=== PATIENT | female | born 1940 | race African-American/Black ===

== ENCOUNTER 2017-12-06 11:38 | Inpatient (IN) | payer MEDICARE, OTHER ==
[~2017-12-06] VITALS: Ht 162.6 cm; Wt 118.1 kg
[2017-12-06 12:39] LABS: Basophils # (auto) 0 uL; Eosinophils # (auto) 0.1 uL
[2017-12-06 12:41] LABS: Basophils % (auto) 0.6 % (0.0-2.0); Eosinophils % (auto) 1.2 % (0.0-7.0); Hematocrit 33.2 % (36.0-46.0); Hemoglobin 10.9 g/dL (12.2-16.2); Lymphocytes % (auto) 13.7 % (10.0-50.0); Mean Corpuscular Hemoglobin 36.9 pg (28.0-32.0); Mean Corpuscular Volume 111.9 fL (80.0-100.0); Monocytes # (auto) 0.6 uL; Monocytes % (auto) 8.9 % (0.0-12.0); Neutrophils # (auto) 5.3 uL; Neutrophils % (auto) 75.6 % (37.0-80.0); Nucleated Red Blood Cells % 0.1 %; Platelet Count (auto) 238 10^3/uL (140-450); Red Blood Cells 2.97 10^6/uL (4.0-5.20); Red Cell Distribution Width 14.5 % (11.8-14.3)
[2017-12-06 13:25] LABS: Alanine Aminotransferase 14 U/L (13-56); Albumin 3.1 g/dL (3.4-5.0); Alkaline Phosphatase 124 U/L (45-117); Anion Gap 10 (5-15); Aspartate Aminotransferase 12 U/L (15-37); BUN/Creatinine Ratio 5.5; Bilirubin, Total 0.4 mg/dL (0.2-1.0); Blood Urea Nitrogen 38 mg/dL (7-18); Calcium 8.3 mg/dL (8.5-10.1); Carbon Dioxide 28 mmol/L (21-32); Chloride 97 mmol/L (98-107); GFR African American 7 mL/min; GFR Non-African American 6 mL/min; Glucose 111 mg/dL (74-106); Potassium 4.7 mmol/L (3.5-5.1); Sodium 135 mmol/L (136-145); Total Protein 8.2 g/dL (6.4-8.2)
[2017-12-06] MEDS ORDERED: MORPHINE SULFATE 4 MG/ML SYR/VIAL IV PRN (15:30)
[2017-12-06] MEDS ORDERED: ASPirin 81 mg TAB PO ONE (15:30)
[2017-12-06] MEDS ORDERED: NITROGLYCERIN 0.4 MG SL TAB SL PRN (15:30)
[2017-12-06] MEDS ORDERED: PANTOPRAZOLE 40 MG TAB PO ONE (15:30)
[2017-12-06] MEDS ORDERED: ESOM40CA39 PO (16:39)
[2017-12-06] MEDS ORDERED: EST0625T PO (16:39)
[2017-12-06] MEDS ORDERED: FURO40TA PO (16:39)
[2017-12-06] MEDS ORDERED: HYDR-531 PO (16:39)
[2017-12-06] MEDS ORDERED: CLON0.1T PO (16:39)
[2017-12-06] MEDS ORDERED: VITA400T4 PO (16:39)
[2017-12-06] MEDS ORDERED: CHOL20007 PO (16:39)
[2017-12-06] MEDS ORDERED: TIOTCAP IN (16:39)
[2017-12-06] MEDS ORDERED: LEV50T PO (16:39)
[2017-12-06] MEDS ORDERED: LOSA100T25 PO (16:39)
[2017-12-06] MEDS ORDERED: [UNRECOGNIZED DRUG - CODE] PO (16:39)
[2017-12-06] MEDS ORDERED: DIAZ10TA PO (16:39)
[2017-12-06] MEDS ORDERED: IPRIH INH (16:39)
[2017-12-06] MEDS ORDERED: ASCO500C49 PO (16:39)
[2017-12-06] MEDS ORDERED: TRAM50TA2 PO (16:47)
[2017-12-06] MEDS ORDERED: LEVO1CAP3 PO (16:47)
[2017-12-06] MEDS ORDERED: SEVE800T8 PO (16:47)
[2017-12-06] MEDS ORDERED: MULT-228 PO (16:48)
[2017-12-06] MEDS ORDERED: ACETTAB85 PO (16:48)
[2017-12-06] MEDS: CALCIUM ACETATE 667 MG CAP PO SCH (18:12)
[2017-12-06] MEDS: ATORVASTATIN 20 MG TAB PO SCH (21:58)
[2017-12-06 22:00] VITALS: BP 113/73
[2017-12-06] MEDS ORDERED: NIF10C PO (23:47)
[2017-12-06] MEDS: ACETAMINOPHEN 325 MG TAB PO PRN (23:54)
[2017-12-07 05:00] VITALS: BP 132/62
[2017-12-07 09:18] VITALS: BP 107/48
[2017-12-07] MEDS ORDERED: EPOETIN ALFA 2,000 UNIT/1 ML VIAL IV ONE ×3 (10:00→16:00)
[2017-12-07] MEDS ORDERED: SODIUM CHL 0.9% 1000 ML BAG XX ONE (10:00)
[2017-12-07] MEDS ORDERED: MIDODRINE HCL 10 MG TAB PO PRN (10:00)
[2017-12-07] MEDS: ACETAMINOPHEN 325 MG TAB PO PRN ×2 (10:06→22:04)
[2017-12-07] MEDS: CALCIUM ACETATE 667 MG CAP PO SCH ×3 (10:06→18:49)
[2017-12-07] MEDS: ASPirin 81 mg TAB PO SCH (10:07)
[2017-12-07] MEDS: PANTOPRAZOLE 40 MG TAB PO SCH (10:07)
[2017-12-07 12:55] VITALS: BP 113/52
[2017-12-07] MEDS ORDERED: EPOETIN ALFA 3,000 UNIT/1 ML VIAL IV ONE (16:00)
[2017-12-07 17:24] VITALS: BP 101/56
[2017-12-07] MEDS: ATORVASTATIN 20 MG TAB PO SCH (21:35)
[2017-12-07 21:52] VITALS: BP 123/58
[2017-12-08 04:32] VITALS: BP 134/53
[2017-12-08] MEDS: CALCIUM ACETATE 667 MG CAP PO SCH ×3 (08:00→18:28)
[2017-12-08 08:36] VITALS: BP 133/64
[2017-12-08] MEDS: PANTOPRAZOLE 40 MG TAB PO SCH (09:41)
[2017-12-08] MEDS: ASPirin 81 mg TAB PO SCH (09:41)
[2017-12-08 12:18] VITALS: BP 103/55
[2017-12-08] MEDS ORDERED: MIDODRINE HCL 10 MG TAB PO PRN ×2 (16:30→17:15)
[2017-12-08 17:25] VITALS: BP 87/54
[2017-12-08] MEDS: ATORVASTATIN 20 MG TAB PO SCH (21:42)
[2017-12-08 21:43] VITALS: BP 95/54
[2017-12-09 05:07] VITALS: BP 99/59
[2017-12-09] MEDS: CALCIUM ACETATE 667 MG CAP PO SCH ×3 (08:13→18:09)
[2017-12-09 09:00] VITALS: BP 120/49
[2017-12-09] MEDS ORDERED: EPOETIN ALFA 2,000 UNIT/1 ML VIAL IV ONE (10:00)
[2017-12-09] MEDS ORDERED: SODIUM CHL 0.9% 1000 ML BAG XX ONE (10:00)
[2017-12-09] MEDS: PANTOPRAZOLE 40 MG TAB PO SCH (10:03)
[2017-12-09] MEDS: ASPirin 81 mg TAB PO SCH (10:03)
[2017-12-09 12:00] VITALS: BP 123/54
[2017-12-09 16:00] VITALS: BP 97/55
== END 2017-12-09 19:00 | disposition home or self-care (01) | DRG 302 ==
LOC: ER 11:38 → TELE 11:39 → TELE-EAST 18:25
PROVIDERS: ADMIT Internal Medicine; ATTEND Internal Medicine Cardiovascular Disease
PROC: 5A1D70Z Performance of Urinary Filtration, Intermittent, Less than 6 Hours Per Day (ICD-10-PCS; principal; 2017-12-07)
PROC: 5A1D70Z Performance of Urinary Filtration, Intermittent, Less than 6 Hours Per Day (ICD-10-PCS; 2017-12-09)
DX: I25.119 Atherosclerotic heart disease of native coronary artery with unspecified angina pectoris (principal); N18.6 End stage renal disease; I12.0 Hypertensive chronic kidney disease with stage 5 chronic kidney disease or end stage renal disease; E66.01 Morbid (severe) obesity due to excess calories; D63.8 Anemia in other chronic diseases classified elsewhere; Z68.41 Body mass index [BMI] 40.0-44.9, adult; I25.2 Old myocardial infarction; Z99.2 Dependence on renal dialysis; M17.0 Bilateral primary osteoarthritis of knee; E03.9 Hypothyroidism, unspecified; E78.5 Hyperlipidemia, unspecified; Z96.653 Presence of artificial knee joint, bilateral; T36.8X5A Adverse effect of other systemic antibiotics, initial encounter; F32.9 Major depressive disorder, single episode, unspecified; F41.9 Anxiety disorder, unspecified; Z82.49 Family history of ischemic heart disease and other diseases of the circulatory system; Z88.5 Allergy status to narcotic agent; Z79.899 Other long term (current) drug therapy; Z98.61 Coronary angioplasty status; Z71.89 Other specified counseling; Y92.89 Other specified places as the place of occurrence of the external cause
CPT/HCPCS: 36415; 71045; 80053; 83540; 83735; 84100; 84443; 84484; 85025; 87081; 90935; 93005; 93306; 97163; J1642; Q4081

== ENCOUNTER → 2018-08-16 | Outpatient (CLI) | payer MEDICARE, BC ==
[~2018-08-16] MED LIST: ACET-1603 PO; ASCO500C49 PO; CHOL20007 PO; CLON0.1T PO; DIAZ10TA PO; ESOM40CA39 PO; EST0625T PO; FURO40TA PO; HYDR-531 PO; IPRIH INH; LEV50T PO; LEVO1CAP3 PO; LOSA100T25 PO; MULT-228 PO; NIF10C PO; SEVE800T8 PO; TIOTCAP IN; TRAM50TA2 PO; VITA400T4 PO; [UNRECOGNIZED DRUG - CODE] PO
== END | disposition home or self-care (01) ==
LOC: Rad HDHVI 10:52
PROVIDERS: ATTEND Internal Medicine Cardiovascular Disease
DX: M48.061 Spinal stenosis, lumbar region without neurogenic claudication (principal); Z79.899 Other long term (current) drug therapy
CPT/HCPCS: 72131

== ENCOUNTER → 2020-04-14 | Outpatient (CLI) | payer MEDICARE, BC ==
[~2020-04-14] MED LIST changes: +FURO1TAB31 PO; -FURO40TA PO
[2020-04-14 16:09] LABS: Albumin 2.9 g/dL (3.4-5.0); Potassium 4.2 mmol/L (3.5-5.1)
[2020-04-14 16:13] LABS: Basophils # (auto) 0 10 ^3/uL (0-0.2); Eosinophils # (auto) 0.2 10 ^3/uL (0-0.8); Hemoglobin 7.3 g/dL (12.2-16.2); Lymphocytes # (auto) 1.2 10 ^3/uL (0.4-5.4); Mean Corpuscular Volume 100.4 fL (80.0-100.0)
[2020-04-14 16:15] LABS: BUN/Creatinine Ratio 3.7; Basophils % (auto) 0.6 % (0.0-2.0); Bilirubin, Total 0.3 mg/dL (0.2-1.0); Eosinophils % (auto) 3.1 % (0.0-7.0); Hematocrit 23.1 % (36.0-46.0); Lymphocytes % (auto) 16.5 % (10.0-50.0); Mean Corpuscular Hemoglobin 31.8 pg (28.0-32.0); Mean Corpuscular Hgb Conc. 31.7 g/dL (32.0-36.0); Monocytes # (auto) 0.6 10 ^3/uL (0-1.3); Monocytes % (auto) 7.7 % (0.0-12.0); Neutrophils # (auto) 5.2 10 ^3/uL (1.6-8.6); Neutrophils % (auto) 72.1 % (37.0-80.0); Platelet Count (auto) 460 10^3/uL (140-450); Red Cell Distribution Width 17.1 % (11.8-14.3); Total Protein 7.3 g/dL (6.4-8.2); White Blood Cell 7.2 10^3/uL (4.4-10.8)
[2020-04-14 16:18] LABS: Free T4 (Free Thyroxine) 1.34 ng/dL (0.89-1.76)
== END | disposition home or self-care (01) ==
LOC: LAB 11:09
PROVIDERS: ATTEND Internal Medicine Cardiovascular Disease
DX: E03.9 Hypothyroidism, unspecified (principal); K90.9 Intestinal malabsorption, unspecified; D51.9 Vitamin B12 deficiency anemia, unspecified; Z00.00 Encounter for general adult medical examination without abnormal findings; Z79.899 Other long term (current) drug therapy
CPT/HCPCS: 36415; 80053; 80061; 82306; 82607; 83036; 84439; 84443; 85025